=== PATIENT | female | born 2005 | race Hispanic/Latino ===

== ENCOUNTER 2025-02-19 22:31 | Emergency (ER) | payer OTHER ==
[~2025-02-19] VITALS: Ht 170.2 cm; Wt 57.6 kg
[2025-02-19] MEDS: ketOROlac 60 MG VIAL (30MG/ML) IM ONE (23:46)
[2025-02-20] MEDS ORDERED: IBUP-2070 PO (00:34)
--- NOTE | 2025-02-20 00:34 | ERN ---
ED Note History of Present Illness Stated Complaint: C/O PAIN TO RT KNEE X 1 WK Chief Complaint: Knee Injury/Swelling Time Seen by MD: 22:34 Time Seen by Midlevel: 22:34 Dictation: The patient is a 19-year-old female with no significant past medical history who presents to the emergency department with complaints of right knee pain onset a week ago after she accidentally hit it with a cart. Patient reports she was seen by the urgent care on Tuesday and was told she did not have any fractures but reports pain continue. No other injuries reported. Allergies: Coded Allergies: No Known Allergies (Unverified Allergy, Unknown, 02/19/25) Past Medical History Past Medical History: No Pertinent History Surgical History: None LMP: February 19, 2025 RN Note Reviewed/Agreed w/PFSH: Yes Review of System Dictation Constitutional: Negative for fever,chills, and weight loss Eyes: Negative for injury, pain,redness, and discharge ENT: Negative for injury,pain or swelling Cardiovascular: Negative for chest pain, palpitations, and edema Respiratory: Negative for shortness of breath, cough, and wheezing, Abdomen/GI: Negative for abdominal pain, nausea, vomiting, diarrhea, and constipation Back: Negative for injury and pain : Negative for injury, bleeding and discharge MS/Extremity: Positive for right knee pain Skin: Negative for rash, and discoloration Neuro: Negative for headache, weakness, numbness, tingling, and seizure Psych: Negative for suicide ideation, homicidal ideation, and hallucinations Initial Vital Sign VS Vital Signs Date Time Temp Pulse Resp B/P (MAP) Pulse Ox O2 Delivery O2 Flow Rate FiO2 02/19/25 22:33 98.1 85 20 110/64 98 Room Air Physical Exam Dictation Vital Signs reviewed General Appearance: Alert, oriented x 3, no acute distress, well developed, nourished. Head and Face: non-traumatic. Eyes: PERRL, pink conjunctivas, eyelid no trauma, anterior chamber with arcus senilis. Ears: Pinnas intact and no signs of trauma or erythema ear canals clear and no discharge TM no erythema Nose: No discharge, no bleeding. Oropharynx: Mouth normal, tongue pink. pharynx clear,no erythema, tonsils no exudates, no abscesses noted, mucous membrane moist Neck: Supple, non-tender, no thyromegaly, no masses, no JVD, no bruits Breast:Deferred Chest:No tenderness, no crepitus, no paradoxical movement, no retractions Lungs:Clear, well-ventilated, symmetric, no rales, no wheezing, no rhonchi, no stridor, good breath sounds bilaterally Heart: Regular rate, regular rhythm, no murmur, no gallops Vascular: Dorsalis pedis 3+ bilaterally Abdomen: Soft, positive bowel sounds, nondistended, no guarding, nontender, no rebound, no masses no hepatomegaly, no splenomegaly, no Pressley's sign, no hernias. Rectal: Deferred Genital: Deferred Neurological: Normal speech, motor function intact, sensory function intact Musculoskeletal: Neck nontender, full range of motion, back nontender, full range of motion, no knee swelling no open wounds slight tenderness to palpation Extremities: nontender, full range of motion Skin: Color pink, dry, no turgor, no rash, no lacerations, no abrasions, no contusions. Lymphatic: Deferred Results (Laboratory/Radiology) Laboratory/Radiology Laboratory Tests Test 02/19/25 22:58 Serum Test, Qualitative NEGATIVE (NEGATIVE) Labs Reviewed?: Yes ED Course ED Course Orders Procedure Category Date Status Time Testing, LAB 02/19/25 Complete Serum Hcg 22:47 Knee 3vws Rt RAD 02/19/25 Taken 22:47 Ketorolac 60mg/2ml PHA 02/19/25 Complete (Toradol 60mg/2ml) 23:00 Current Medications Medications (Trade) Dose Ordered Sig/Eliezer Route PRN Reason Start Time Stop Time Status Last Admin Dose Admin Ketorolac Tromethamine (toRADol 60MG/ 2ML) 60 mg ONCE ONCE IM 02/19/25 23:00 02/19/25 23:01 DC 02/19/25 23:46 Vital Signs Date Time Temp Pulse Resp B/P (MAP) Pulse Ox O2 Delivery O2 Flow Rate FiO2 02/19/25 22:33 98.1 85 20 110/64 98 Room Air Medical Decision Making MDM The patient is a 19-year-old female with no significant past medical history who presents to the emergency department with complaints of right knee pain onset a week ago after she accidentally hit it with a cart. Patient reports she was seen by the urgent care on Tuesday and was told she did not have any fractures but reports pain continue. No other injuries reported. X-ray showed no obvious fractures. Physical exam patient is neurovascularly intact. Good distal pulses. Patient instructed to follow up with primary doctor. We will be referred for orthopedic. Patient in no acute distress, ambulatory. Differential diagnosis: Knee contusion, knee sprain, dislocated knee Need for hospitalization: Patient does not meet criteria for hospitalization. There are no social concerns with this patient. DX & DISP Disposition: Discharge Departure Impression: Primary Impression: Right knee pain Condition: Stable Scripts Ibuprofen (Ibuprofen) 600 Mg Tablet 600 MG PO Q6H PRN for PAIN, #30 TAB Prov: BLAZE PAUL 02/20/25 Additional Instructions: Please follow up with the primary doctor in 1-2 days. If symptoms worsen please return to ER. FOLLOW-UP WITH PRIMARY CARE PROVIDER IN 1 TO 2 DAYS. TAKE MEDICATIONS D IRECTED HERE IN THE EMERGENCY ROOM. OKAY TO CONTINUE HOME MEDICATIONS UNLESS OTHERWISE DISCUSSED DURING YOUR VISIT IN THE EMERGENCY ROOM TODAY. RETURN TO YOUR NEAREST EMERGENCY ROOM IF SYMPTOMS WORSEN OR IF THERE IS NO IMPROVEMENT. CALL 911 IF YOU NEED IMMEDIATE ASSISTANCE. TAKE TYLENOL OR MOTRIN [id number] NEEDED AND IF NO CONTRAINDICATIONS ARE PRESENT. INCREASE ORAL HYDRATION. A WOUND CULTURE OR URINE CULTURE WAS ORDERED HERE IN THE EMERGENCY ROOM DEPARTMENT PLEASE FOLLOW-UP WITH PRIMARY CARE PROVIDER AND ADVISE THEM TO GET REPEAT PORTS FROM OUR FACILITY. IF YOU HAD ANY TRINH WRAP/SPLINTS THAT WERE APPLIED HERE, PLEASE DO NOT REMOVE THEM UNTIL YOU SEE YOUR PRIMARY CARE OR SPECIALTY. Referrals: SELF,REFERRAL (PCP) JIM CEDILLO MD Time of Disposition: 00:32 I have reviewed the case, and I agree with, Diagnosis and Plan BLAZE PAUL February 20, 2025 00:34
[2025-02-20 00:44] VITALS: BP 112/56; PULSE 78; RESP 18; TEMP 97.1; O2SAT 98
--- NOTE | 2025-02-20 08:35 | HMCIMG ---
KNEE 3VWS RT HISTORY: Pain COMPARISON: None TECHNIQUE: 3 images of right knee were obtained. FINDINGS: There is no acute displaced fracture or dislocation. IMPRESSION: 1. Findings as described above.
== END 2025-02-20 00:45 | disposition home or self-care (01) ==
LOC: EDH 22:31
DX: M25.561 Pain in right knee (principal)
CPT/HCPCS: 99284; 84703; 36415; 73562; 96372; J1885